=== PATIENT | female | born 1965 | race Two or more races ===

== ENCOUNTER 2020-04-06 13:21 | Emergency (ER) | payer OTHER ==
[~2020-04-06] VITALS: Ht 142.2 cm; Wt 80.7 kg
[2020-04-06] MEDS ORDERED: PROAIR HFA8.5 GM IH (13:38)
[2020-04-06] MEDS ORDERED: ATROVENT HFA12.9 GM IH (13:38)
[2020-04-06] MEDS ORDERED: CLONAZEPAM1 GM MC (13:38)
[2020-04-06] MEDS ORDERED: DUI500 PO (15:50)
[2020-04-06] MEDS ORDERED: TUSNEL LIQUID178 ML PO (15:50)
[2020-04-06] MEDS ORDERED: VISTARIL25 MG PO (15:50)
== END 2020-04-06 15:58 | disposition home or self-care (01) ==
LOC: ER 13:21
DX: R06.02 Shortness of breath (principal); R05 Cough; R53.83 Other fatigue; F41.8 Other specified anxiety disorders